=== PATIENT | male | born 1945 | race Caucasian/White ===

== ENCOUNTER 2017-08-12 17:51 | Inpatient (IN) | payer MEDICARE, MEDICAID ==
[~2017-08-12] VITALS: Ht 172.7 cm; Wt 84.1 kg
--- NOTE | ~2017-08-12 | OP ---
PATIENT NAME: FREDDIE MCDONOUGH MEDICAL RECORD: [id number] :45 LOCATION:[id number] ADMISSION DATE:08/12/17 SURGEON: SARI JOSEPH DO DATE OF OPERATION: 08/14/2017 PROCEDURE PERFORMED: Right medial tibial plateau closed reduction and percutaneous pinning with single cannulated screw and washer. PREOPERATIVE DIAGNOSIS: Right medial tibial plateau fracture, 2 mm displaced. POSTOPERATIVE DIAGNOSIS: Right medial tibial plateau fracture, 2 mm displaced. INDICATIONS: Mr. Mcdonough is a 72-year-old male who presented to the hospital with right knee pain. He said it hurt to walk on it and could not bend it much due to the pain. He did not really have much swelling. He said it has been like that for a while. He did not even know how long. He was not aware of what day it was, not because he is demented but just because he lives in the [facility] and he said he was finally able to take a shower first time in about 3 months, but he said his right knee pain, he did not know when it started, had no idea how long it had been there. He said it hurt to bend it. An x-ray was taken of his right knee. It showed a 2-mm displaced tibial plateau fracture on the medial side and a CT was done to get a better location and idea of the fracture, which was off the anterior medial aspect of the medial tibial plateau. Knowing this and talking to the patient, telling me it could displace further, we could leave it unless he would be nonweightbearing or we can put a screw in it and get it back to where it should be and he can weightbear after 4-6 weeks. He opted to go with that. He is aware of the risks and benefits of the procedure including infection, bleeding, damage to nerves and vessels, need for further surgery and he consented to the procedure. DESCRIPTION OF PROCEDURE: The patient was taken to the operative suite, laid in supine position, and given general anesthetic. The right lower extremity was prepped and draped in sterile fashion with tourniquet above the knee. The tourniquet was not inflated during this procedure. Blood loss was minimal. Once the patient was positioned and prepped and draped, C-arm was brought in and I got location of where the fracture was. I got a K-wire through the fracture site, directed from anterior to posterior through the fracture site kind of obliquely and this was confirmed on AP and lateral and then an overdrill was used. An incision was made in the skin to accommodate the drill and the screw drilled to the proximal part of the fracture and a cannulated 5.0 screw with a washer was put, 15 mm in length was put. He had a nice reduction of the fracture, confirmed on AP and lateral and then the K-wire was removed and the wound was irrigated and closed with 4-0 Monocryl in an inverted interrupted fashion under the skin and then a 4-0 Monocryl in a horizontal mattress on the skin and then Adaptic, Telfa and Tegaderm were placed over the site. The patient was awakened and taken to recovery in stable condition. ESTIMATED BLOOD LOSS: Minimal. COMPLICATIONS: None. TRANSINT:[id number] Voice Confirmation ID: [id number] DOCUMENT ID: [id number] OPERATIVE REPORT [id number] FREDDIE MCDONOUGH,SARI Almonte DO at 0753 CC: [id number] DICTATION DATE: 08/14/17 1432 PAVILION CUTTER: 08/14/17 1540 ADM IN [facility] [address] [place] [address]
[2017-08-12] MEDS ORDERED: METOPROLOL TAR100 M1 PO (18:40)
[2017-08-12] MEDS ORDERED: ROXICODONE15 MG PO (18:40)
[2017-08-12] MEDS ORDERED: NORVASC5 MG PO (18:41)
[2017-08-12 18:42] LABS: HEMATOCRIT 34.6 % (42.0-54.0); LYMPHOCYTES 35.7 % (15-50); MCH 27.5 pg (26.0-34.0); MCHC 31.8 g/dL (31.0-37.0); MCV 86.5 fL (80.0-100.0); NEUTROPHILS 45.7 % (40-80); PLATELET COUNT 129 10x3/uL (130-400); RDW 12.7 % (11.5-14.5); WBC 5.7 10x3/uL (4.8-10.8)
[2017-08-12 19:22] LABS: ALBUMIN 3.2 g/dL (3.4-5.0); ALKALINE PHOSPHATASE 89 U/L (46-116); ALT (SGPT) 25 U/L (10-68); BILIRUBIN - TOTAL 0.47 mg/dL (0.2-1.3); CALC OSMOLALITY 284 mosm/kg (275-300); CALCIUM 8.4 mg/dL (8.5-10.1); CARBON DIOXIDE 32.3 mmol/L (21.0-32.0); CHLORIDE - SERUM 104 mmol/L (98-107); GLUCOSE 110 mg/dL (74-106); POTASSIUM - SERUM 3.5 mmol/L (3.5-5.1); SODIUM 143 mmol/L (136-145); UREA NITROGEN 11 mg/dL (7-18); eGFR NON AFRICAN AMERICAN 78 mL/min (90-120)
[2017-08-12 20:00] VITALS: BP 102/62
[2017-08-13] VITALS (7 sets, daily range): BP systolic 100–120; BP diastolic 48–73; Ht 172.7 cm; Wt 84.1 kg
[2017-08-13 06:01] LABS: CALC OSMOLALITY 281 mosm/kg (275-300); CALCIUM 8.4 mg/dL (8.5-10.1); CARBON DIOXIDE 31.4 mmol/L (21.0-32.0); CHLORIDE - SERUM 106 mmol/L (98-107); CREATININE - SERUM 0.9 mg/dL (0.6-1.3); GLUCOSE 86 mg/dL (74-106); POTASSIUM - SERUM 3.4 mmol/L (3.5-5.1); SODIUM 143 mmol/L (136-145); eGFR NON AFRICAN AMERICAN 88 mL/min (90-120)
[2017-08-13 06:17] LABS: UREA NITROGEN 8 mg/dL (7-18)
[2017-08-13 06:29] LABS: HEMATOCRIT 36.3 % (42.0-54.0); HEMOGLOBIN 11.7 g/dL (13.5-17.5); MCHC 32.2 g/dL (31.0-37.0); MCV 86.8 fL (80.0-100.0); MEAN PLATELET VOLUME 10.2 fL (7.4-10.4); NEUTROPHILS 41.3 % (40-80); PLATELET COUNT 128 10x3/uL (130-400); RBC 4.18 10x6/uL (4.20-6.10); RDW 12.5 % (11.5-14.5); WBC 5.2 10x3/uL (4.8-10.8)
[2017-08-13 13:49] LABS: CKMB 3.7 U/L (0.0-3.6); CREATINE KINASE 577 UL (21-232)
[2017-08-13 13:50] LABS: TROPONIN-I < 0.017 ng/mL (0.000-0.060)
[2017-08-13 19:15] LABS: CKMB 2.4 U/L (0.0-3.6); CREATINE KINASE 467 UL (21-232)
[2017-08-13 19:21] LABS: APPEARANCE CLEAR (CLEAR); BILIRUBIN NEGATIVE (NEGATIVE); COLOR DK YELLOW (YELLOW); GLUCOSE NEGATIVE (NEGATIVE); KETONE NEGATIVE (NEGATIVE); NITRITE NEGATIVE (NEGATIVE); PROTEIN NEGATIVE (NEGATIVE); UROBILINOGEN NORMAL (NORMAL)
[2017-08-13 19:27] LABS: TROPONIN-I < 0.017 ng/mL (0.000-0.060)
[2017-08-14] VITALS (7 sets, daily range): BP systolic 107–124; BP diastolic 67–76
[2017-08-14 01:09] LABS: CKMB 1.4 U/L (0.0-3.6); CREATINE KINASE 407 UL (21-232); TROPONIN-I < 0.017 ng/mL (0.000-0.060)
[2017-08-14 05:55] LABS: BASOPHILS 0.2 % (0-2); EOSINOPHILS 1.7 % (0-7); HEMATOCRIT 34.3 % (42.0-54.0); HEMOGLOBIN 10.7 g/dL (13.5-17.5); IMMATURE GRANULOCYTES 0.2 % (0-5); LYMPHOCYTES 33.6 % (15-50); MCH 27.4 pg (26.0-34.0); MCHC 31.2 g/dL (31.0-37.0); MCV 87.7 fL (80.0-100.0); MEAN PLATELET VOLUME 10.5 fL (7.4-10.4); MONOCYTES 15.4 % (2-11); NEUTROPHILS 48.9 % (40-80); RBC 3.91 10x6/uL (4.20-6.10); WBC 5.4 10x3/uL (4.8-10.8)
[2017-08-14 06:18] LABS: PLATELET COUNT 157 10x3/uL (130-400)
[2017-08-14 06:48] LABS: ALBUMIN 2.6 g/dL (3.4-5.0); ALKALINE PHOSPHATASE 74 U/L (46-116); ALT (SGPT) 21 U/L (10-68); BILIRUBIN - TOTAL 0.54 mg/dL (0.2-1.3); CALC OSMOLALITY 283 mosm/kg (275-300); CARBON DIOXIDE 30.6 mmol/L (21.0-32.0); CHLORIDE - SERUM 105 mmol/L (98-107); CREATININE - SERUM 0.9 mg/dL (0.6-1.3); GLUCOSE 92 mg/dL (74-106); POTASSIUM - SERUM 3.5 mmol/L (3.5-5.1); PROTEIN - SERUM 6.4 g/dL (6.4-8.2); SODIUM 144 mmol/L (136-145); UREA NITROGEN 5 mg/dL (7-18); eGFR NON AFRICAN AMERICAN 88 mL/min (90-120)
[2017-08-15 04:00] VITALS: BP 126/75
[2017-08-15 04:47] LABS: BASOPHILS 0 % (0-2); EOSINOPHILS 0 % (0-7); HEMATOCRIT 37.5 % (42.0-54.0); HEMOGLOBIN 11.6 g/dL (13.5-17.5); IMMATURE GRANULOCYTES 0.2 % (0-5); LYMPHOCYTES 13.3 % (15-50); MCH 27.6 pg (26.0-34.0); MCHC 30.9 g/dL (31.0-37.0); MCV 89.1 fL (80.0-100.0); MEAN PLATELET VOLUME 10.4 fL (7.4-10.4); MONOCYTES 6.7 % (2-11); NEUTROPHILS 79.8 % (40-80); PLATELET COUNT 165 10x3/uL (130-400); RBC 4.21 10x6/uL (4.20-6.10); RDW 13.3 % (11.5-14.5)
[2017-08-15 04:59] LABS: ALBUMIN 2.8 g/dL (3.4-5.0); ALKALINE PHOSPHATASE 89 U/L (46-116); ALT (SGPT) 17 U/L (10-68); BILIRUBIN - TOTAL 0.43 mg/dL (0.2-1.3); CALCIUM 8.5 mg/dL (8.5-10.1); CARBON DIOXIDE 31.4 mmol/L (21.0-32.0); CHLORIDE - SERUM 105 mmol/L (98-107); CREATININE - SERUM 0.9 mg/dL (0.6-1.3); GLUCOSE 131 mg/dL (74-106); PROTEIN - SERUM 7.3 g/dL (6.4-8.2); SODIUM 143 mmol/L (136-145); eGFR NON AFRICAN AMERICAN 88 mL/min (90-120)
[2017-08-15 05:10] LABS: CALC OSMOLALITY 284 mosm/kg (275-300); POTASSIUM - SERUM 4.1 mmol/L (3.5-5.1); UREA NITROGEN 7 mg/dL (7-18)
[2017-08-15 09:30] VITALS: BP 107/65
[2017-08-15] MEDS ORDERED: ZOFRAN4 MG PO (11:47)
[2017-08-15] MEDS ORDERED: MIRALAX17 GM PO (11:47)
[2017-08-15] MEDS ORDERED: PROTONIX40 MG PO (11:47)
[2017-08-15] MEDS ORDERED: SENOKOT-S TABLE1 TAB PO (11:47)
[2017-08-15] MEDS ORDERED: NALOXONE HC0.4 MG/M2 IV (11:47)
[2017-08-15] MEDS ORDERED: DILAUD1MGAMP IV (11:48)
[2017-08-15] MEDS ORDERED: VALIUM5 MG PO (11:48)
[2017-08-15] MEDS ORDERED: IPRAT-ALBUT 0.5-3 ML UPD (11:48)
[2017-08-15] MEDS ORDERED: ELIQUIS2.5 MG PO (11:48)
[2017-08-15] MEDS ORDERED: BENADRYL INJ50 MG/ML IV (11:48)
[2017-08-15] MEDS ORDERED: OXYCODONE HCL5 MG PO (11:49)
[2017-08-15] MEDS ORDERED: OXYCONTIN10 MG PO (11:49)
[2017-08-15 12:40] VITALS: BP 101/64
[2017-08-15 15:30] VITALS: BP 108/69
== END 2017-08-15 17:12 | DRG 493 ==
LOC: D.MS 17:51
PROVIDERS: Emergency Medicine; Orthopaedic Surgery
PROC: 0QSG04Z Reposition Right Tibia with Internal Fixation Device, Open Approach (ICD-10-PCS; principal; 2017-08-14 12:00)
DX: S82.141A Displaced bicondylar fracture of right tibia, initial encounter for closed fracture (principal); G72.81 Critical illness myopathy; W19.XXXA Unspecified fall, initial encounter; E87.6 Hypokalemia; M54.9 Dorsalgia, unspecified; M25.512 Pain in left shoulder; M25.511 Pain in right shoulder; E78.5 Hyperlipidemia, unspecified; J44.9 Chronic obstructive pulmonary disease, unspecified; I10 Essential (primary) hypertension; H81.09 Meniere's disease, unspecified ear; M50.30 Other cervical disc degeneration, unspecified cervical region; Z95.810 Presence of automatic (implantable) cardiac defibrillator; Z87.891 Personal history of nicotine dependence

== ENCOUNTER 2017-08-15 16:05 | Inpatient (IN) | payer MEDICARE, MEDICAID ==
[~2017-08-15] VITALS: Ht 172.7 cm; Wt 63.0 kg
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
[~2017-08-15 16:05] MED LIST: BENADRYL INJ50 MG/ML IV; DILAUD1MGAMP IV; ELIQUIS2.5 MG PO; IPRAT-ALBUT 0.5-3 ML UPD; METOPROLOL TAR100 M1 PO; MIRALAX17 GM PO; NALOXONE HC0.4 MG/M2 IV; NORVASC5 MG PO; OXYCODONE HCL5 MG PO; OXYCONTIN10 MG PO; PROTONIX40 MG PO; ROXICODONE15 MG PO; SENOKOT-S TABLE1 TAB PO; VALIUM5 MG PO; ZOFRAN4 MG PO
[2017-08-15 17:37] VITALS: BP 107/72; BMI 21.1
[2017-08-15 22:09] VITALS: BP 117/66
[2017-08-16 06:25] LABS: BASOPHILS 0.2 % (0-2); EOSINOPHILS 1.8 % (0-7); HEMATOCRIT 34.5 % (42.0-54.0); HEMOGLOBIN 10.6 g/dL (13.5-17.5); IMMATURE GRANULOCYTES 0.2 % (0-5); LYMPHOCYTES 41.9 % (15-50); MCH 27.5 pg (26.0-34.0); MCHC 30.7 g/dL (31.0-37.0); MCV 89.4 fL (80.0-100.0); MEAN PLATELET VOLUME 10.3 fL (7.4-10.4); MONOCYTES 9.8 % (2-11); NEUTROPHILS 46.1 % (40-80); PLATELET COUNT 169 10x3/uL (130-400); RBC 3.86 10x6/uL (4.20-6.10); RDW 13.7 % (11.5-14.5); WBC 6.1 10x3/uL (4.8-10.8)
[2017-08-16 06:27] LABS: CALC OSMOLALITY 284 mosm/kg (275-300); CARBON DIOXIDE 32.5 mmol/L (21.0-32.0); CHLORIDE - SERUM 108 mmol/L (98-107); CREATININE - SERUM 0.9 mg/dL (0.6-1.3); GLUCOSE 86 mg/dL (74-106); POTASSIUM - SERUM 3.6 mmol/L (3.5-5.1); SODIUM 144 mmol/L (136-145); eGFR NON AFRICAN AMERICAN 88 mL/min (90-120)
[2017-08-16 06:29] LABS: UREA NITROGEN 10 mg/dL (7-18)
[2017-08-16 07:09] LABS: CALCIUM 8.3 mg/dL (8.5-10.1)
[2017-08-16 08:29] VITALS: BP 118/66
[2017-08-16 13:40] VITALS: Ht 172.7 cm; Wt 63.0 kg
[2017-08-16 20:00] VITALS: BP 126/78
[2017-08-17 07:55] VITALS: BP 129/79
[2017-08-17 19:45] VITALS: BP 114/74
[2017-08-18 12:31] VITALS: BP 137/78
[2017-08-18 23:12] VITALS: BP 101/64
[2017-08-19 05:18] LABS: BASOPHILS 0.2 % (0-2); EOSINOPHILS 3.7 % (0-7); HEMATOCRIT 36.8 % (42.0-54.0); HEMOGLOBIN 11.3 g/dL (13.5-17.5); IMMATURE GRANULOCYTES 0.2 % (0-5); LYMPHOCYTES 42.8 % (15-50); MCH 27.2 pg (26.0-34.0); MCHC 30.7 g/dL (31.0-37.0); MCV 88.7 fL (80.0-100.0); MONOCYTES 12.1 % (2-11); PLATELET COUNT 193 10x3/uL (130-400); RBC 4.15 10x6/uL (4.20-6.10); RDW 13.9 % (11.5-14.5); WBC 5.1 10x3/uL (4.8-10.8)
[2017-08-19 05:33] LABS: CALC OSMOLALITY 289 mosm/kg (275-300); CALCIUM 9.1 mg/dL (8.5-10.1); CARBON DIOXIDE 31.6 mmol/L (21.0-32.0); CHLORIDE - SERUM 109 mmol/L (98-107); GLUCOSE 90 mg/dL (74-106); POTASSIUM - SERUM 4.6 mmol/L (3.5-5.1); SODIUM 146 mmol/L (136-145); UREA NITROGEN 11 mg/dL (7-18); eGFR NON AFRICAN AMERICAN 78 mL/min (90-120)
[2017-08-19 19:00] VITALS: BP 121/74
[2017-08-20 12:13] VITALS: BP 117/73
[2017-08-20 21:25] VITALS: BP 107/66
[2017-08-21 05:45] LABS: BASOPHILS 0.2 % (0-2); EOSINOPHILS 3.8 % (0-7); HEMATOCRIT 35.9 % (42.0-54.0); HEMOGLOBIN 11.1 g/dL (13.5-17.5); IMMATURE GRANULOCYTES 0.2 % (0-5); LYMPHOCYTES 45.3 % (15-50); MCH 27.3 pg (26.0-34.0); MCHC 30.9 g/dL (31.0-37.0); MCV 88.2 fL (80.0-100.0); MEAN PLATELET VOLUME 10.2 fL (7.4-10.4); MONOCYTES 13.7 % (2-11); NEUTROPHILS 36.8 % (40-80); PLATELET COUNT 188 10x3/uL (130-400); RBC 4.07 10x6/uL (4.20-6.10); RDW 13.9 % (11.5-14.5)
[2017-08-21 05:59] LABS: CALC OSMOLALITY 287 mosm/kg (275-300); CALCIUM 8.2 mg/dL (8.5-10.1); CARBON DIOXIDE 29.4 mmol/L (21.0-32.0); CHLORIDE - SERUM 109 mmol/L (98-107); GLUCOSE 90 mg/dL (74-106); POTASSIUM - SERUM 4.7 mmol/L (3.5-5.1); SODIUM 145 mmol/L (136-145); UREA NITROGEN 11 mg/dL (7-18); eGFR NON AFRICAN AMERICAN 78 mL/min (90-120)
[2017-08-21 07:49] VITALS: BP 131/75
[2017-08-21 19:43] VITALS: BP 105/47
[2017-08-22 07:42] VITALS: BP 104/64
[2017-08-22 19:00] VITALS: BP 113/73
[2017-08-23 07:06] LABS: BASOPHILS 0.4 % (0-2); EOSINOPHILS 3.1 % (0-7); HEMATOCRIT 39.9 % (42.0-54.0); HEMOGLOBIN 12.2 g/dL (13.5-17.5); IMMATURE GRANULOCYTES 0.2 % (0-5); LYMPHOCYTES 41.7 % (15-50); MCH 27.7 pg (26.0-34.0); MCHC 30.6 g/dL (31.0-37.0); MCV 90.5 fL (80.0-100.0); MEAN PLATELET VOLUME 10.5 fL (7.4-10.4); MONOCYTES 11.4 % (2-11); NEUTROPHILS 43.2 % (40-80); PLATELET COUNT 223 10x3/uL (130-400); RBC 4.41 10x6/uL (4.20-6.10); WBC 5.2 10x3/uL (4.8-10.8)
[2017-08-23 07:11] LABS: ANION GAP 9.4 mmol/L (8-16); CALCIUM 8.8 mg/dL (8.5-10.1); CARBON DIOXIDE 30.8 mmol/L (21.0-32.0); CREATININE - SERUM 1.1 mg/dL (0.6-1.3); POTASSIUM - SERUM 5.2 mmol/L (3.5-5.1)
[2017-08-23 09:11] VITALS: BP 118/75
[2017-08-24 00:12] VITALS: BP 128/78
[2017-08-24 08:33] VITALS: BP 122/62
[2017-08-24 20:37] VITALS: BP 104/72
[2017-08-25 07:57] VITALS: BP 103/57
[2017-08-25 22:42] VITALS: BP 109/59
[2017-08-26 06:32] LABS: BASOPHILS 0.4 % (0-2); HEMATOCRIT 40.8 % (42.0-54.0); HEMOGLOBIN 12.6 g/dL (13.5-17.5); IMMATURE GRANULOCYTES 0.2 % (0-5); LYMPHOCYTES 36.5 % (15-50); MCH 27.5 pg (26.0-34.0); MCHC 30.9 g/dL (31.0-37.0); MCV 88.9 fL (80.0-100.0); MEAN PLATELET VOLUME 10.4 fL (7.4-10.4); MONOCYTES 11.7 % (2-11); NEUTROPHILS 48.2 % (40-80); PLATELET COUNT 200 10x3/uL (130-400); RBC 4.59 10x6/uL (4.20-6.10); WBC 5.3 10x3/uL (4.8-10.8)
[2017-08-26 06:40] LABS: ANION GAP 13.5 mmol/L (8-16); CALCIUM 8.9 mg/dL (8.5-10.1); CARBON DIOXIDE 25.7 mmol/L (21.0-32.0); CREATININE - SERUM 1.1 mg/dL (0.6-1.3); POTASSIUM - SERUM 4.2 mmol/L (3.5-5.1)
[2017-08-26 07:45] VITALS: BP 123/79
[2017-08-26 20:00] VITALS: BP 102/83
[2017-08-27 08:48] VITALS: BP 110/71
[2017-08-28 00:48] VITALS: BP 118/73
[2017-08-28 08:00] VITALS: BP 95/67
[2017-08-28 08:33] VITALS: BP 133/73
== END 2017-08-28 11:23 | disposition home or self-care (01) | DRG 93 ==
LOC: D.REHAB 16:05
PROVIDERS: Emergency Medicine
DX: G72.81 Critical illness myopathy (principal); S82.143D Displaced bicondylar fracture of unspecified tibia, subsequent encounter for closed fracture with routine healing; V49.9XXD Car occupant (driver) (passenger) injured in unspecified traffic accident, subsequent encounter; E87.6 Hypokalemia; E78.5 Hyperlipidemia, unspecified; J44.9 Chronic obstructive pulmonary disease, unspecified; H81.09 Meniere's disease, unspecified ear; Z95.0 Presence of cardiac pacemaker; F41.9 Anxiety disorder, unspecified; M54.9 Dorsalgia, unspecified; Z91.81 History of falling; I10 Essential (primary) hypertension; M50.30 Other cervical disc degeneration, unspecified cervical region

== ENCOUNTER 2017-10-13 13:39 | Inpatient (IN) | payer MEDICARE ==
[~2017-10-13] VITALS: Ht 177.8 cm; Wt 83.2 kg
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
--- NOTE | ~2017-10-13 | PN ---
PATIENT:FREDDIE YANES MEDICAL RECORD: [id number] LOCATION:[facility] ADMISSION DATE: 10/13/17 PROGRESS NOTE DATE OF SERVICE: 10/18/2017 SUBJECTIVE: The patient's case was discussed with staff. He has no new complaint. OBJECTIVE: The patient denies intent to harm himself or others. He tolerates his medicines well. Eye contact is fair. ASSESSMENT: No change in diagnoses. PLAN: Current medicines and therapies have been reviewed and will be maintained. TRANSINT:[id number] Voice Confirmation ID: [id number] DOCUMENT ID: [id number] KAILA YADAV MD at 1936 CC: [id number] DICTATION DATE: 10/18/17 1440 CREDIT PORTFOLIO MANAGER: 10/18/17 1528 ADM IN [place] [id number] [place] [id number]
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
--- NOTE | ~2017-10-13 | PN ---
PATIENT:FREDDIE YANES MEDICAL RECORD: [id number] LOCATION:[facility] ADMISSION DATE: 10/13/17 PROGRESS NOTE DATE OF SERVICE: 10/16/2017 SUBJECTIVE: No new complaint. OBJECTIVE: Staff reports the patient is more argumentative this morning. He was also more irritable last night and showed more evidence of confusion. The patient's nephew will be visiting either late tomorrow or Saturday. On exam, mood is irritable. Affect is rather brittle. Speech is more terse. Content of thought shows vague and nonspecific paranoid ideation. Sensorium shows no change. ASSESSMENT: No change in diagnosis. PLAN: 1. Request neuropsychological testing with Dr. Walden. 2. Maintain current medication. 3. Continue supportive therapy. TRANSINT:[id number] Voice Confirmation ID: [id number] DOCUMENT ID: [id number] DAVID DOHERTY III, MD at 0932 CC: [id number] DICTATION DATE: 10/16/17 1111 VOCATIONAL TECHNICAL EDUCATION DIRECTOR: 10/16/17 1348 ADM IN [place] [id number] [place] [address]
--- NOTE | ~2017-10-13 | PN ---
PATIENT:FREDDIE YANES MEDICAL RECORD: [id number] LOCATION:[facility] ADMISSION DATE: 10/13/17 PROGRESS NOTE DATE OF SERVICE: 10/17/2017 SUBJECTIVE: No new complaint. OBJECTIVE: Staff notes the patient has tended to be somewhat more argumentative in the last couple of days. He is sleeping well. On exam, the patient's speech is rather rambling, although for the most part it is sequential. Mood is at times irritable, at other times bland. Content of thought exhibits some nonspecific paranoid ideation. The patient tends to be accusatory toward others. Sensorium does not show change. ASSESSMENT: No change in diagnosis. PLAN: 1. The patient's nephew is arriving later today or tomorrow to visit with the patient. It is a possibility that the patient may live with the nephew in the future. 2. Neuropsychological testing will take place tomorrow. 3. We will maintain current medications and supportive therapy. TRANSINT:[id number] Voice Confirmation ID: [id number] DOCUMENT ID: [id number] DAVID DOHERTY III, MD at 0932 CC: [id number] DICTATION DATE: 10/17/17 1101 ROTATING FIELD ASSEMBLER: 10/17/17 1221 ADM IN [facility] [address] [place] [address]
--- NOTE | ~2017-10-13 | PN ---
PATIENT:FREDDIE YANES MEDICAL RECORD: [id number] LOCATION:[facility] ADMISSION DATE: 10/13/17 PROGRESS NOTE DATE OF SERVICE: 10/19/2017 SUBJECTIVE: The patient's case was discussed with staff. He has no new complaint. OBJECTIVE: The patient is in good behavioral control with limited insight about his condition. He is tolerating his medicines well. ASSESSMENT: No change in diagnoses. PLAN: Supportive and educational interventions were made. Long-term prognosis is guarded. TRANSINT:[id number] Voice Confirmation ID: [id number] DOCUMENT ID: [id number] KAILA YADAV MD at 0822 CC: [id number] DICTATION DATE: 10/19/17 1220 COMMUNICATIONS SENIOR ASSOCIATE: 10/19/17 1232 DIS IN 10/20/17 [place] [id number] [place] [address]
--- NOTE | ~2017-10-13 | DS ---
PATIENT:FREDDIE YANES :45 MEDICAL RECORD: [id number] DISCHARGE SUMMARY ADMISSION DATE: 10/13/17 DISCHARGE DATE: 10/20/17 DATE OF ADMISSION: 10/13/2017 DATE OF DISCHARGE: 10/20/2017 HISTORY OF PRESENT ILLNESS: First skilled nursing admission for this 72-year-old unmarried white male. The patient was transferred from [facility]. He had overdosed on opioids and benzodiazepines. The patient later claimed that this was accidental although the report from [facility] indicated that it was likely intentional. Details however were not available. The patient had been briefly kept in the intensive care unit before transfer here. For further details, please see previously dictated history. COURSE IN THE HOSPITAL: The patient was seen in consultation by Dr. Odom. Dr. Odom noted the presence of ongoing medical problems including COPD, hyperlipidemia, hypertension, degenerative disc disease, past history of Meniere's disease, past history of tibial plateau fracture on the right, cardiac arrhythmias and osteoarthritis. Additional social history was obtained following hospitalization. The patient had spent considerable amount of time in the [facility]. The patient did have a nephew who was contacted and who agreed to help manage the patient at the conclusion of the hospitalization. It was elected to start the patient on routine doses of Protonix and Norvasc. Ativan was used to control agitation. Although the patient was argumentative from time to time, he did not become combative. There is no further evidence of suicidality or severe depressive symptoms; however, neuropsychological testing did reveal some deficits. The patient scored 23/30. Recommendation was that in view of this cognitive impairment, the patient should reside with family. The nephew agreed to take the patient under his care and the patient was discharged to the care of the nephew. FINAL DIAGNOSES: AXIS I: Vascular dementia -- mild. AXIS II: No diagnosis. AXIS III: History of alcohol abuse, status post overdose -- resolving. AXIS IV: Moderate. AXIS V: 40. PLAN: 1. The patient is discharged on current medication. 2. Care will be provided by the patient's nephew. 3. Diet and activities as tolerated. TRANSINT:[id number] Voice Confirmation ID: [id number] DOCUMENT ID: [id number] DISCHARGE SUMMARY REPORT [id number] FREDDIE YANES III, DAVID Cespedes MD at 0435 CC: [id number] DICTATION DATE: 10/21/17 1209 METAL ORGAN PIPE MAKER: 10/21/17 1522 DIS IN 10/20/17 [facility] [address] [place] [address]
[2017-10-13 19:47] VITALS: BP 172/97
[2017-10-13 20:34] LABS: APPEARANCE CLEAR (CLEAR); BILIRUBIN NEGATIVE (NEGATIVE); COLOR YELLOW (YELLOW); GLUCOSE NEGATIVE (NEGATIVE); KETONE NEGATIVE (NEGATIVE); NITRITE NEGATIVE (NEGATIVE); PROTEIN NEGATIVE (NEGATIVE); UROBILINOGEN NORMAL (NORMAL)
[2017-10-14] MEDS ORDERED: ULTRAM50 MG PO (02:28)
[2017-10-14] MEDS ORDERED: NAPROSYN500 MG PO (02:30)
[2017-10-14] MEDS ORDERED: ZANAFLEX2 M1 PO (02:31)
[2017-10-14] MEDS ORDERED: AMOXICILLIN875 MG PO (02:33)
[2017-10-14] MEDS ORDERED: ILOTYCIN1 GM EACH EYE (02:36)
[2017-10-14] MEDS ORDERED: MULTIPLE VITAMI1 TA1 (02:38)
[2017-10-14] MEDS ORDERED: OMEGA 3 FISH OI1 CAP PO (02:39)
[2017-10-14] MEDS ORDERED: BENICAR20 MG PO (02:39)
[2017-10-14] MEDS ORDERED: VALIUM10 MG PO (02:40)
[2017-10-14] MEDS ORDERED: HYDROCODONE-APA1 TAB PO (02:41)
[2017-10-14 07:00] VITALS: BP 159/86
[2017-10-14 08:46] VITALS: BMI 21.1
[2017-10-14 10:45] LABS: ALBUMIN 3.5 g/dL (3.4-5.0); ALKALINE PHOSPHATASE 92 U/L (46-116); ALT (SGPT) 16 U/L (10-68); BILIRUBIN - TOTAL 0.48 mg/dL (0.2-1.3); CALC OSMOLALITY 280 mosm/kg (275-300); CARBON DIOXIDE 31.2 mmol/L (21.0-32.0); CHLORIDE - SERUM 106 mmol/L (98-107); CHOL - HDL RATIO 4.9 ratio (2.3-4.9); CHOLESTEROL, TOTAL 226 mg/dL (0-200); CREATININE - SERUM 0.9 mg/dL (0.6-1.3); GLUCOSE 96 mg/dL (74-106); HDL CHOLESTEROL 46 mg/dL (32-96); LDL CHOLESTEROL 159 mg/dL (0-100); LDL-HDL RATIO 3.5 ratio (1.5-3.5); POTASSIUM - SERUM 4.3 mmol/L (3.5-5.1); SODIUM 142 mmol/L (136-145); TRIGLYCERIDE 108 mg/dL (30-200); UREA NITROGEN 7 mg/dL (7-18); eGFR NON AFRICAN AMERICAN 88 mL/min (90-120)
[2017-10-14 10:48] LABS: BASOPHILS 0.4 % (0-2); EOSINOPHILS 3.2 % (0-7); HEMATOCRIT 40.5 % (42.0-54.0); IMMATURE GRANULOCYTES 0.2 % (0-5); LYMPHOCYTES 35.9 % (15-50); MCH 28.1 pg (26.0-34.0); MCHC 32.1 g/dL (31.0-37.0); MCV 87.5 fL (80.0-100.0); MEAN PLATELET VOLUME 10.3 fL (7.4-10.4); MONOCYTES 11.1 % (2-11); NEUTROPHILS 49.2 % (40-80); RBC 4.63 10x6/uL (4.20-6.10); RDW 13.6 % (11.5-14.5); WBC 4.7 10x3/uL (4.8-10.8)
[2017-10-14 10:52] LABS: PLATELET COUNT 149 10x3/uL (130-400)
[2017-10-14 11:37] VITALS: BP 172/97
[2017-10-14 16:19] VITALS: Ht 177.8 cm; Wt 83.2 kg
[2017-10-14 19:46] VITALS: BP 146/86
[2017-10-15 08:23] LABS: FOLATE (FOLIC ACID) - SERUM >20.0 ng/mL (>3.0)
[2017-10-15 09:24] VITALS: BP 150/98
[2017-10-15 19:21] VITALS: BP 152/98
[2017-10-16 08:01] VITALS: BP 157/107
[2017-10-16 20:17] VITALS: BP 153/95
[2017-10-17 09:57] VITALS: BP 128/99
[2017-10-17 20:33] VITALS: BP 120/70
[2017-10-18 07:50] VITALS: BP 138/93
[2017-10-18 20:17] VITALS: BP 121/71
[2017-10-19 07:44] VITALS: BP 143/94
[2017-10-19] MEDS ORDERED: NORVASC10 MG PO (12:22)
[2017-10-19] MEDS ORDERED: ULTRAM50 MG PO (12:23)
[2017-10-19] MEDS ORDERED: VOLTAREN100 GM TOPICAL (12:23)
[2017-10-19] MEDS ORDERED: FLORAJEN3 CAPS460 MG PO (12:24)
[2017-10-19] MEDS ORDERED: PROTONIX40 MG PO (12:24)
[2017-10-19 19:56] VITALS: BP 151/88
[2017-10-20 07:23] VITALS: BP 115/76
== END 2017-10-20 13:50 | disposition home or self-care (01) | DRG 881 ==
LOC: D.PSYCH 13:39
PROVIDERS: Psychiatry & Neurology Psychiatry
DX: F32.9 Major depressive disorder, single episode, unspecified (principal); F01.51 Vascular dementia, unspecified severity, with behavioral disturbance; E78.5 Hyperlipidemia, unspecified; I10 Essential (primary) hypertension; J44.9 Chronic obstructive pulmonary disease, unspecified; M50.30 Other cervical disc degeneration, unspecified cervical region; K59.09 Other constipation; Z95.0 Presence of cardiac pacemaker; K21.9 Gastro-esophageal reflux disease without esophagitis; M19.90 Unspecified osteoarthritis, unspecified site; R26.81 Unsteadiness on feet; Z91.81 History of falling; H81.09 Meniere's disease, unspecified ear; H91.90 Unspecified hearing loss, unspecified ear

== ENCOUNTER → 2018-08-25 10:25 | Outpatient (CLI) | payer MEDICARE, MEDICAID ==
[2017-10-14 16:19] VITALS: BMI 28.0
[~2018-08-25 10:25] MED LIST changes: +AMOXICILLIN875 MG PO; +BENICAR20 MG PO; +FLORAJEN3 CAPS460 MG PO; +HYDROCODONE-APA1 TAB PO; +ILOTYCIN1 GM EACH EYE; +MULTIPLE VITAMI1 TA1; +NAPROSYN500 MG PO; +NORVASC10 MG PO; +OMEGA 3 FISH OI1 CAP PO; +ULTRAM50 MG PO; +VALIUM10 MG PO; +VOLTAREN100 GM TOPICAL; +ZANAFLEX2 M1 PO
== END | disposition home or self-care (01) ==
LOC: D.HCCARDIO 10:25
PROVIDERS: ATTEND Internal Medicine Cardiovascular Disease
DX: I34.2 Nonrheumatic mitral (valve) stenosis (principal)